=== PATIENT | male | born 1990 | race Caucasian/White ===

== ENCOUNTER 2018-06-05 12:40 | Emergency (ER) | payer SELFPAY | END 2018-06-05 13:05 | disposition home or self-care (01) | LOC: MADERS 12:40 | DX: F22 Delusional disorders (principal); F25.9 Schizoaffective disorder, unspecified; F17.200 Nicotine dependence, unspecified, uncomplicated | CPT/HCPCS: 99282 ==

== ENCOUNTER 2019-01-16 18:47 | Emergency (ER) | payer SELFPAY ==
--- NOTE | 2019-01-16 19:30 | RAD ---
RADIOGRAPH CHEST ONE VIEW RADIOGRAPH ABDOMEN 2 VIEWS: DATE: 01/16/2019 HISTORY: 28-year-old male states status post ingestion of metallic foreign bodies. FINDINGS: There are no airspace densities or pulmonary edema. The lateral costophrenic angles are sharp. There is no cardiomegaly. There is no evidence of pneumothorax or pneumoperitoneum. There is no evidence of dilated small bowel loops, differential air-fluid levels, or organomegaly. Th ere is no metallic foreign body overlying the chest or abdomen or pelvis. IMPRESSION: Negative
== END 2019-01-16 19:38 | disposition home or self-care (01) ==
LOC: MADERS 18:47
DX: F22 Delusional disorders (principal); F25.9 Schizoaffective disorder, unspecified; F17.200 Nicotine dependence, unspecified, uncomplicated; Z79.899 Other long term (current) drug therapy
CPT/HCPCS: 74022; 99406